=== PATIENT | female | born 1980 | race African-American/Black ===

== ENCOUNTER 2020-09-04 09:21 | Emergency (ER) | payer OTHER ==
[~2020-09-04] VITALS: Ht 157.5 cm; Wt 70.8 kg
[2020-09-04 09:32] VITALS: BP 134/73
[2020-09-04] MEDS ORDERED: HYDROCODON-ACE1 EAC7 PO (09:56)
== END 2020-09-04 10:07 | disposition home or self-care (01) ==
LOC: M.ERS 09:21
DX: S90.31XA Contusion of right foot, initial encounter (principal); X50.9XXA Other and unspecified overexertion or strenuous movements or postures, initial encounter; Y93.6A Activity, physical games generally associated with school recess, summer camp and children; Y92.89 Other specified places as the place of occurrence of the external cause; Y99.8 Other external cause status